=== PATIENT | male | born 1990 | race Caucasian/White ===

== ENCOUNTER 2021-10-19 14:46 | Emergency (ER) | payer OTHER, SELFPAY ==
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
[2021-10-19 15:00] VITALS: BP 141/70; BP 160/98; PULSE 76; PULSE 80; RESP 16; TEMP 36.1; O2SAT 97; O2SAT 99; BMI 27.1
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
== END 2021-10-19 17:42 | disposition home or self-care (01) ==
PROVIDERS: Emergency Provider Emergency Medicine
DX: S39.012A Strain of muscle, fascia and tendon of lower back, initial encounter (principal); S29.012A Strain of muscle and tendon of back wall of thorax, initial encounter; M54.2 Cervicalgia; R51.9 Headache, unspecified; V43.52XA Car driver injured in collision with other type car in traffic accident, initial encounter; Y93.9 Activity, unspecified; Y92.410 Unspecified street and highway as the place of occurrence of the external cause; Y99.0 Civilian activity done for income or pay; Z79.899 Other long term (current) drug therapy
CPT/HCPCS: 70450; 72125; 72128; 72131; 96372; 99283; 99284

== ENCOUNTER → 2021-10-20 10:11 | Outpatient (BNVA) | payer OTHER, SELFPAY | PROVIDERS: Visit Provider Physician Assistant Medical | DX: S39.012A Strain of muscle, fascia and tendon of lower back, initial encounter (principal); V89.0XXA Person injured in unspecified motor-vehicle accident, nontraffic, initial encounter | CPT/HCPCS: 99203 ==

== ENCOUNTER → 2021-10-22 10:13 | Outpatient (BNVA) | payer OTHER, SELFPAY | PROVIDERS: Visit Provider Internal Medicine | DX: S46.011A Strain of muscle(s) and tendon(s) of the rotator cuff of right shoulder, initial encounter (principal); V89.0XXA Person injured in unspecified motor-vehicle accident, nontraffic, initial encounter | CPT/HCPCS: 99213 ==

== ENCOUNTER → 2021-10-27 11:05 | Outpatient (BNVA) | payer OTHER, SELFPAY | PROVIDERS: Visit Provider Internal Medicine | DX: S43.421D Sprain of right rotator cuff capsule, subsequent encounter (principal); V89.2XXD Person injured in unspecified motor-vehicle accident, traffic, subsequent encounter | CPT/HCPCS: 99213 ==